=== PATIENT | male | born 1970 | race Caucasian/White ===

== ENCOUNTER 2017-06-06 18:17 | Emergency (ER) | payer BC, OTHER ==
[~2017-06-06] VITALS: Ht 177.8 cm; Wt 73.1 kg
[2017-06-06 18:25] VITALS: TEMP 36.9; Ht 177.8 cm; Wt 73.1 kg
[2017-06-06] MEDS ORDERED: MoRPHine SULFATE 4 MG/ML 1 ML CARP\\VIAL IV STA (18:36)
[2017-06-06] MEDS ORDERED: METOCLOPRAMIDE HCL INJ 5 MG/ML 2 ML VIAL IV STA (18:36)
[2017-06-06] MEDS ORDERED: SODIUM CHLORIDE 0.9% 1000ML 1,000 ML IV STA (18:36)
[2017-06-06] MEDS ORDERED: OPTIRAY 320 IV PRN (18:45)
[2017-06-06 18:52] LABS: URINE APPEARANCE CLEAR (CLEAR); URINE BILIRUBIN NEG (NEG); URINE COLOR YELLOW; URINE NITRITE NEG (NEG); URINE PH 7.5 (4.5-7.5); URINE SPECIFIC GRAVITY 1.011 (1.000-1.030); UROBILINOGEN NEG (NEG); ZZUR CULT IF INDIC CLEAN CATCH NO
[2017-06-06 18:56] LABS: MANUAL MICROSCOPIC REQUIRED? NO; REVIEW REQ? NO
[2017-06-06 19:02] LABS: BASO % 0.1 %; BASO ABS # 0.01 K/uL (0-0.2); COMPLETE YES; EOS % 0.1 %; HEMATOCRIT 52.2 % (42-52); IG% 0.2 %; LYMPH % 18.9 %; LYMPH ABS # 1.71 K/uL (1.2-3.4); MEAN CELL VOLUME 90.2 fL (80-100); MEAN CORPUSCULAR HEMOGLOBIN 31.6 pg (25-34); MEAN CORPUSCULAR HGB CONC 35.1 g/dl (32-36); MEAN PLATELET VOLUME 12.3 fL (7.4-10.4); MONO % 6.7 %; PLATELET COUNT 203 K/uL (130-400); RED BLOOD COUNT 5.79 M/uL (4.7-6.1); WHITE BLOOD COUNT 9.05 K/uL (4.8-10.8)
[2017-06-06 19:24] LABS: BUN/CREATININE RATIO 13.7 (10-20); CREATININE 1.1 mg/dl (0.60-1.40); POTASSIUM 4.1 mmol/L (3.5-5.1)
--- NOTE | 2017-06-06 19:39 | EMERGENCY ROOM VISIT NOTE ---
History Report prepared by Kaleb: Tatianna Turcios Under the Supervision of: Dr. Trevor Connors M.D. First contact with patient: 18:35 Chief Complaint: ABDOMINAL PAIN Stated Complaint: AB PAIN Nursing Triage Summary: Pt arrives by ALS for c/o right sided abd pain, upper and lower, stabbing in nature. Vomiting and Diarrhea for the last 2 months. Pt states "I'm in withdrawl from Gabapentin and Neurontin". Pt reports he was taken off of those medications. Also reports he was on Gaston, but was taken off of that as well; Last dose was 2 weeks ago. Pt is driving [employer] from [place] back to his home in [place]. Hx of Diabetes- has insulin pump, Digestive Enzyme Disorder. History of Present Illness The patient is a 46 year old white male with a past medical history of gastroparesis, type 1 diabetes, bilateral 1st rib resection for thoracic outlet syndrome who presents to the ED with a cc of persistent abdominal pain beginning [employer] which he currently rates as a 7/10 in severity. Positive vomiting , right rib pain, constipation. Negative urinary symptoms. He was taken off of lithium and gabapentin 2 weeks ago. He states he is in withdrawal. His sugars have been running high recently. His last A1C was 8.2. He denies alcohol or tobacco use. He admits to marijuana use. 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 Review of Systems See HPI for pertinent positives and negatives. A total of ten systems were reviewed and were otherwise negative. Past Medical & Surgical Medical Problems: (1) Gastroparesis (2) Thoracic outlet syndrome (3) Type 1 diabetes Surgical Problems: (1) History of resection of rib (2) S/P carpal tunnel release Family History No pertinent family history stated. Social History Smoking Status: Never Smoker Marital Status: Occupation Status: unemployed Current/Historical Medications Scheduled Insulin Aspart (novoLOG INSULIN PUMP ), 1 EA N/A UD Gaston Carbonate (Gaston Carbonate), 150 MG PO TID Pancrelipase (Lipase-Protease- (Creon), 2-3 CAP PO UD Pramipexole Dihydrochloride (Pramipexole Dihydrochlori), 2 TABS PO BID Ropinirole (Requip), 2 TABS PO BID Scheduled PRN Lorazepam (Ativan), 1 MG PO Q6H PRN for Anxiety Promethazine (Phenergan ), 12.5 MG PO TID PRN for Nausea Allergies Coded Allergies: Amitriptyline (Verified Adverse Reaction, Severe, SUICIDAL THOUGHTS, ) Nortriptyline (Verified Adverse Reaction, Severe, SUICIDAL THOUGHTS, ) Physical Exam Vital Signs Date Time Temp Pulse Resp B/P (MAP) Pulse Ox O2 Delivery O2 Flow Rate FiO2 06/06/17 20:13 92 18 139/100 93 06/06/17 18:25 36.9 74 22 153/89 100 Room Air Physical Exam GENERAL: Awake, alert, well-appearing, NAD HENT: Normocephalic, atraumatic. EYES: Normal conjunctiva. Sclera non-icteric. NECK: Supple. No nuchal rigidity. FROM. RESPIRATORY: CTAB, no rhonchi, wheezing, crackles CARDIAC: RRR, no MRG ABDOMEN: Soft, right sided abdominal TTP, insulin pump noted to LLQ without any erythema, negative obturators, negative psoas, ND, BS+ MSK: No chest wall TTP, no LE edema, right sided flank TTP. NEURO: GCS 15, CN 2-12 intact, moves all 4s on command SKIN: No rash or jaundice noted. Medical Decision & Procedures Laboratory Results 06/06/17 18:45 Red Blood Count 5.79, Mean Corpuscular Volume 90.2, Mean Corpuscular Hemoglobin 31.6, Mean Corpuscular Hemoglobin Concent 35.1, Mean Platelet Volume 12.3, Neutrophils (%) (Auto) 74.0, Lymphocytes (%) (Auto) 18.9, Monocytes (%) (Auto) 6.7, Eosinophils (%) (Auto) 0.1, Basophils (%) (Auto) 0.1, Neutrophils # (Auto) 6.69, Lymphocytes # (Auto) 1.71, Monocytes # (Auto) 0.61, Eosinophils # (Auto) 0.01, Basophils # (Auto) 0.01 06/06/17 18:45 Test 06/06/17 18:40 06/06/17 18:45 Urine Color YELLOW Urine Appearance CLEAR (CLEAR) Urine pH 7.5 (4.5-7.5) Urine Specific [place] 1.011 (1.000-1.030) Urine Protein NEG (NEG) Urine Glucose (UA) 2+ (NEG) Urine Ketones TRACE (NEG) Urine Occult Blood NEG (NEG) Urine Nitrite NEG (NEG) Urine Bilirubin NEG (NEG) Urine Urobilinogen NEG (NEG) Urine Leukocyte Esterase NEG (NEG) White Blood Count 9.05 K/uL (4.8-10.8) Red Blood Count 5.79 M/uL (4.7-6.1) Hemoglobin 18.3 g/dL (14.0-18.0) Hematocrit 52.2 % (42-52) Mean Corpuscular Volume 90.2 fL (80-100) Mean Corpuscular Hemoglobin 31.6 pg (25-34) Mean Corpuscular Hemoglobin Concent 35.1 g/dl (32-36) Platelet Count 203 K/uL (130-400) Mean Platelet Volume 12.3 fL (7.4-10.4) Neutrophils (%) (Auto) 74.0 % Lymphocytes (%) (Auto) 18.9 % Monocytes (%) (Auto) 6.7 % Eosinophils (%) (Auto) 0.1 % Basophils (%) (Auto) 0.1 % Neutrophils # (Auto) 6.69 K/uL (1.4-6.5) Lymphocytes # (Auto) 1.71 K/uL (1.2-3.4) Monocytes # (Auto) 0.61 K/uL (0.11-0.59) Eosinophils # (Auto) 0.01 K/uL (0-0.5) Basophils # (Auto) 0.01 K/uL (0-0.2) RDW Standard Deviation 39.6 fL (36.4-46.3) RDW Coefficient of Variation 12.1 % (11.5-14.5) Immature Granulocyte % (Auto) 0.2 % Immature Granulocyte # (Auto) 0.02 K/uL (0.00-0.02) Anion Gap 11.0 mmol/L (3-11) Est Creatinine Clear Calc Drug Dose 86.6 ml/min Estimated GFR () 92.8 Estimated GFR (Non- 80.1 BUN/Creatinine Ratio 13.7 (10-20) Calcium Level 10.0 mg/dl (8.5-10.1) Total Bilirubin 1.2 mg/dl (0.2-1) Direct Bilirubin 0.2 mg/dl (0-0.2) Aspartate Amino Transf (AST/SGOT) 14 U/L (15-37) Alanine Aminotransferase (ALT/SGPT) 31 U/L (12-78) Alkaline Phosphatase 91 U/L (45-117) Total Protein 7.9 gm/dl (6.4-8.2) Albumin 4.6 gm/dl (3.4-5.0) Lipase 149 U/L (73-393) Laboratory results reviewed by me Medications Administered Medications (Trade) Dose Ordered Sig/Cordell Route Start Time Stop Time Status Last Admin Dose Admin Sodium Chloride 1,000 ml @ 999 mls/hr Q1H1M STAT IV 06/06/17 18:36 06/06/17 19:36 DC 06/06/17 18:50 999 MLS/HR Metoclopramide HCl (Reglan Inj) 10 mg NOW STAT IV 06/06/17 18:36 06/06/17 18:38 DC 06/06/17 18:50 10 MG ED Course 1917: The patient was evaluated in room B3B. A complete history and physical exam was performed. 1999: I reevaluated the patient. The patient has refused CT. I discussed results and discharge instructions: he verbalized understanding and agreement. The patient is ready for discharge. Medical Decision Differential diagnosis: Etiologies such as appendicitis, diverticulitis, PUD, biliary pathology, UTI, pancreatitis, obstruction, mesenteric ischemia, aortic pathology, infections, inflammatory bowel disease, renal colic, as well as others were entertained. The patient is a 46 year old white male with a past medical history of gastroparesis, type 1 diabetes, bilateral 1st rib resection for thoracic outlet syndrome who presents to the ED with a cc of persistent abdominal pain beginning [employer] which he currently rates as a 7/10 in severity. Patient was seen and evaluated at the bedside. Patient did have mild right- sided abdominal pain. Patient stated that he did have a history of gastroparesis. Patient had lab work that was completed along with a urine sample. Patient was given supportive care. Patient had a normal anion gap mildly elevated sugar 170. Patient did have mild tones in the urine. Patient stating that he felt improved and declined the CAT scan as his pain and vomiting and improved. Patient was able tolerate by mouth. Given the patient' s normal anion gap and bicarbonate less likely to be DKA in this patient. Given the patient's symptoms and this may been related to possible gastroparesis on the patient was feeling improved after Reglan was able tolerate by mouth. Patient was given strict follow-up, discharge, no trouble cautions. Patient agreed with plan of care patient was safely discharged home. Medication Reconcilliation Current Medication List: was personally reviewed by me Blood Pressure Screening Patient's blood pressure: Elevated blood pressure Blood pressure disposition: Elevated BP felt to be situational Impression Primary Impression: Gastroparesis Additional Impression: Abdominal pain Scribe Attestation The scribe's documentation has been prepared under my direction and personally reviewed by me in its entirety. I confirm that the note above accurately reflects all work, treatment, procedures, and medical decision making performed by me. Departure Information Dispostion Home / Self-Care Patient Instructions Abdominal Pain, My [facility] Additional Instructions Please return to the emergency department if you have worsening or recurrent symptoms not amenable to at-home treatment. Please call for a follow-up appointment with her primary care physician. Please take your medications as prescribed. If you have other concerns and/or complaints please feel free to also call your primary care physician's office or return the ED for further evaluation, management, and treatment. You received narcotic or benzodiazepene medication while in the emergency room today. This is an addictive medication that may cause drowziness as well as constipation. Do not drive, operate heavy machinery, or drink alcohol under the influence of this medication. You may take 600 mg Ibuprofen every 6 hours as needed for pain with food for no more than 2 consecutive days. You may take tylenol 1000mg every 6 hours as needed for pain. You may take motrin and tylenol separately or at the same time. You have been examined and treated today on an emergency basis only. This is not a substitute for, or an effort to provide, complete comprehensive medical care. It is impossible to recognize and treat all injuries or illnesses in a single emergency department visit. It is therefore important that you follow up closely with [facility]. Call as soon as possible for an appointment. Thank you for your time and consideration. I look forward to speaking with you again soon. Please don't hesitate to call us if you have any questions. Work Instructions Return To Work: 1 day Problem Qualifiers Additional Impression: Abdominal pain Abdominal location: generalized Qualified Codes: R10.84 - Generalized abdominal pain
[2017-06-06] MEDS ORDERED: PRAM0.256 PO (20:09)
[2017-06-06] MEDS ORDERED: PROM12.57 PO (20:09)
[2017-06-06] MEDS ORDERED: ATV/1 PO (20:09)
[2017-06-06] MEDS ORDERED: ROPI0.5T15 PO (20:09)
[2017-06-06] MEDS ORDERED: LITH150C6 PO (20:09)
[2017-06-06] MEDS ORDERED: INSPMPNVLG (20:09)
[2017-06-06] MEDS ORDERED: PANC6000 PO (20:09)
[2017-06-06 20:13] VITALS: BP 139/100; PULSE 92; O2SAT 93
== END 2017-06-06 20:14 | disposition home or self-care (01) ==
LOC: EDBD 18:17 → C.EDB 18:18
DX: E10.43 Type 1 diabetes mellitus with diabetic autonomic (poly)neuropathy (principal); R10.84 Generalized abdominal pain; G54.0 Brachial plexus disorders; K92.9 Disease of digestive system, unspecified; F12.90 Cannabis use, unspecified, uncomplicated; Z96.41 Presence of insulin pump (external) (internal)